=== PATIENT | female | born 1945 | race Caucasian/White ===

== ENCOUNTER 2016-07-28 16:16 | Emergency (ER) | payer MEDICARE, OTHER ==
[2016-07-28] MEDS ORDERED: ALBUTEROL SULFATE/IPRATROPIUM 3 ML NEBU IH ONE ×2 (16:48→17:09)
[2016-07-28] MEDS ORDERED: METHYLPREDNISOLONE SOD SUCC/PF 40 MG/ML VIAL IM ONE (16:49)
--- OUTSIDE RECORDS SUMMARY | 2016-07-28 16:54 | XMS REPORT | Continuity of Care Document ---
:1945 Author Organization [facility] ([facility]) Address [address] [place] [address] Phone [phone] Care Team Providers Name Role Phone Osei Florez Primary Care Provider [phone] Source Comments This disclosure is being made pursuant to the Care Everywhere program, applicable federal and state laws, and may not contain all informaitonavailable regarding this patient.[facility] ([facility]) Active Allergies and Adverse Reactions Allergen Noted Date Severity Reactions Comments No Known Drug Allergies 10/01/2008 NO REACTION Current Medications Prescription Sig. Disp. Refills Start Date End Date Status ferrous sulfate (IRON) 325 mg Take 325 mg by Active (65 mg Iron) tablet mouth daily. VITAMIN B COMPLEX Take by mouth Active NO.12-NIACIN PO daily. SENNOSIDES/DOCUSATE SODIUM Take by mouth. Active (SENNA PLUS PO) acetaminophen (MAPAP) 500 mg Take 500 mg by Active capsule mouth every 6 hours as needed. potassium chloride 10 mEq Active tablet aspirin 325 mg tablet Active budesonide-formoterol Active (SYMBICORT) 160-4.5 mcg/Actuation inhaler citalopram 40 mg tablet Active enalapril 20 mg tablet Active folic acid 1 mg tablet Active gabapentin 800 mg tablet Active hydrochlorothiazide 25 mg Active tablet HYDROcodone-acetaminophen Active 5-325 mg per tablet QUEtiapine 50 mg tablet Active rosuvastatin (CRESTOR) 10 mg Active tablet temazepam 30 mg capsule Active metoPROLol tartrate 50 mg 25 mg. 10/21/2015 Active tablet pantoprazole 40 mg EC tablet 11/19/2015 Active ALBUTEROL SULFATE (VENTOLIN Active INH) clomiPHENE 50 mg tablet Take 50 mg by Active mouth daily. 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 Right Eye Left Eye Time To Recurrence: Time To Recurrence: Date VA (D cc) CMT Status Procedure VA (D cc) CMT Status Procedure Cmts 12/23/201060 +1 Avastin #[id number] 40 -2 02/03/2011 2050 -3 Avastin #884167-6 03/04/201160 +2 Avastin #479106-9 -1 04/01/201160 -1 Lucentis #362599 -1 05/05/2011 Avastin #614260-6 06/09/2011 Avastin #069475-7 07/07/2011 -2 Avastin #343455-0 08/04/2011 421 Avastin #866512-3 09/01/2011 2080 -1 419 Avastin #276075-2 +1 09/29/2011 412 Eylea 12/02/201150 -2 307 Eylea 20 -1 01/27/2012 310 Eylea 03/16/2012 Eylea [id number] -2 06/14/201260 -2 Eylea [id number] -2 08/17/2012 +1 Eylea [id number] -2 10/05/12 ny Eylea [id number] 11/23/2012 Eylea [id number] 12/28/2012 Eylea [id number] 01/25/2013 -2 Eylea [id number] 03/01/2013 2070 ecc sc Lucentis 341051 +2 sc 03/30/13 20 ecc Lucentis 582871 +2 05/02/2013 20 ecc sc Lucentis lot [id number] 20/28-1 sc 08/02/2013 20/175 ecc sc Lucentis 088203 28+1 sc 08/30/2013 20110 ecc sc Lucentis 592794 28-2 sc 09/27/2013110-2ecc sc Lucentis lot [id number] 28+2 sc 10/26/2013 2080 -1 ecc cc Lucentis 898508 20+1 cc 12/06/2013125 sc Lucentis lot [id number] 25 sc 01/09/201480 ecc sc Lucentis lot [id number] 20-1 sc 02/06/2014125 sc Lucentis 731307 30 -2 sc 03/20/2014 20125 ecc sc Lucentis lot 729046 -2 sc 04/17/2014 20/100 ecc cc Lucentis 555245 30+3 cc 06/10/2014 20/100ecc sc Lucentis 339259 30 -2 sc 07/11/2014125 ecc sc Lucentis lot [id number] -2 sc 08/08/2014 20/100 ecc sc Lucentis 163384 -2 sc 09/05/2014125-1 sc Lucentis 458064 and Triesence [id number] 30+2 sc 10/03/2014125-1 eccentric +1 sc Lucentis 611529 40+2 sc 11/07/2014 20/100 ecc sc Lucentis 785696 25-2 sc 12/20/2014100-1 sc Lucentis 054355 20-1 sc 01/24/2015100+1 eccen sc Lucentis 150299 20 sc 04/23/2015 20125-1 ecc sc Lucentis 7155580. Gent OD 20-2 sc 06/25/2015125-1 ecc sc Lucentis 6592737 20-1 sc 09/22/2015 20150-1 ecc sc Lucentis 5291646 -2 sc PLEASE USE TETRAVISC ALONG WITH OTHER NUMBING Dermatochalasis 05/07/2010 Ptosis of eyelid 05/07/2010 Enthesopathy of hip region 04/07/2006 Pain in joint, pelvic region and thigh 02/23/2006 Lumbago 02/23/2006 Diffuse cystic mastopathy 02/17/2006 Lump or mass in breast 08/06/2005 Sprain of lumbar region 10/18/2001 Resolved Problems Problem Noted Date Resolved Date Choroidal neovascularization of right eye 05/11/2011 06/09/2011 Most Recent Encounters Date Type Specialty Providers Description 07/21/2016 Office Visit Ophthalmology Hayder Krishnan Subj: Upcoming Appt Specialty MD Paula Reminder Social History Tobacco Use Types Packs/Day Years Used Date Current Every Day Smoker Cigarettes 0.5 Smokeless Tobacco: Never Used Tobacco Cessation:Ready to Quit: No; Counseling Given: No Comments: Alcohol Use Drinks/Week oz/Week Comments Yes Last Filed Vital Signs Vital Sign Reading Time Taken Blood Pressure 102/63 07/15/2011 10:22 AM DIRECTOR OF INSTITUTIONAL GIVING Pulse 67 07/15/2011 10:22 AM DIRECTOR OF INSTITUTIONAL GIVING Temperature 36.4 C (97.5 F) 07/15/2011 10:22 AM DIRECTOR OF INSTITUTIONAL GIVING Respiratory Rate 16 07/15/2011 10:22 AM DIRECTOR OF INSTITUTIONAL GIVING Height 1.62 m (5' 3.78") 07/14/2010 12:03 PM DIRECTOR OF INSTITUTIONAL GIVING Weight 81.7 kg (180 lb 1.9 oz) 07/15/2011 10:22 AM DIRECTOR OF INSTITUTIONAL GIVING Body Mass Index 31.13 07/15/2011 10:22 AM DIRECTOR OF INSTITUTIONAL GIVING Oxygen Saturation 95% 07/15/2011 10:22 AM DIRECTOR OF INSTITUTIONAL GIVING Plan of Care Date Type Specialty Providers Description 08/04/2016 Appointment Ophthalmology Hayder Krishnan, Subj: Appointment Specialty MD Rescheduled [address] [place] [address] [phone] (Fax) Health Maintenance Due Date Last Done Comments HCV Screening 1945 Hepatitis B Vaccine (1 of 3 1945 - Primary Series) Tdap Vaccine 02/08/1956 Lipid Disorder Screening 1963 Td Vaccine 1963 Colonoscopy 1995 Zoster Vaccine 2005 Osteoporosis Screening (DXA 2010 Bone Density) Pneumococcal Vaccine (1 of 2 2010 - PCV13) Mammogram 07/15/2012 07/15/2011, Additional history exists 07/14/2010, 06/20/2009 Influenza Vaccine: Seasonal 01/05/2016 (#1) Results from Last 3 Months Not on file
--- NOTE | 2016-07-28 17:00 | ERNOTE ---
Medical Problem HPI - Narrative Date of Service: 07/28/16 - General Chief Complaint: General Assessment Time Seen by Provider: 07/28/16 16:35 Source: patient Exam Limitations: no limitations - Immun/Allergies/Home Medications Immunizations: IMMUNIZATION HX Immunizations Up to Date Yes History of Influenza Vaccine Yes Hx Pneumococcal Vaccination No Allergies/Adverse Reactions: Allergies varenicline tartrate [From Chantix] Allergy (Verified 07/28/16 16:25) Home Medications: HOME MEDICATIONS Albuterol Sulfate [Proair Hfa] 8.5 gm IH QID PRN 05/02/12 [Last Taken Unknown] Enalapril Maleate [Vasotec] 20 mg PO DAILY 05/02/12 [Last Taken 01/23/14] Ferrous Sulfate [Iron] 325 mg PO DAILY 05/02/12 [Last Taken 01/23/14] Hydrochlorothiazide [Hydrodiuril] 25 mg PO DAILY 05/02/12 [Last Taken 01/23/14] Citalopram Hydrobromide [Celexa] 40 mg PO DAILY 05/03/12 [Last Taken 01/23/14] Folic Acid 1 mg PO QID 05/03/12 [Last Taken 01/23/14] Gabapentin [Neurontin] 800 mg PO TID 05/03/12 [Last Taken 01/23/14] Metoprolol Tartrate 25 mg PO DAILY 05/03/12 [Last Taken 01/23/14] Potassium Chloride 10 meq PO DAILY 05/03/12 [Last Taken 01/23/14] Aspirin [Ecotrin] 325 mg PO DAILY 10/12/12 [Last Taken 01/23/14] Temazepam [Restoril] 15 mg PO HS 11/25/13 [Last Taken 01/22/14] Rosuvastatin Calcium [Crestor] 10 mg PO DAILY 01/23/14 [Last Taken 01/23/14] Budesonide [Pulmicort] 1 mg IH DAILY 12/29/14 [Last Taken Unknown] Seroquel PO DAILY 12/29/14 [Last Taken Unknown] Albuterol Sulfate [Ventolin HFA] 1 puff IH 07/28/16 [Last Taken Unknown] Albuterol Sulfate [Ventolin Hfa] 2 puff IH Q4H PRN #1 inhaler 07/28/16 [Last Taken Unknown] Albuterol Sulfate/Ipratropium [Duoneb 2.5-0.5MG/3ML Soln] 3 ml IH BID #100 vial 07/28/16 [Last Taken Unknown] Doxycycline Monohydrate 100 mg PO BID #20 tablet 07/28/16 [Last Taken Unknown] predniSONE [Prednisone] 3 tab PO DAILY #9 tab 07/28/16 [Last Taken Unknown] - History of Present History Narrative: Pt presents to ED with c/o increased shortness of breath. Pt states she has not been able to use her Symbicort due to unable to afford it and Ventolin inhaler because it is coming in the mail. Pt is using her Nebulizer treatment at home twice a day. Pt states she has intermittent wet productive cough, nasal drainage , nasal congestion. Pt denies sore throat, ear pain, teeth pain, or chest pain. Pt states she sleeps with 2 pillows or in a recliner. Pt states the shortness of breath or cough do not wake her up in the middle of the night. Pt denies lightheadedness or dizziness. Pt states she is able to make it from point [place] to [place] without problems as long as it is short distances. Pt states she does have a history of COPD. Pt sates this feels like when she has her exacerbations. Date (Duration): 07/18/16 Timing: getting worse Severity: moderate Modifying Factors - (Worsens): Present: movement Review of Systems - Review of Systems Constitutional: Present: recent illness, weakness, decreased activity level. Absent: weight loss EYE: Present: no symptoms reported. Absent: eye pain, double vision, vision changes ENT: Present: nose congestion, nasal drainage. Absent: ear pain, ear discharge , nose pain, sore throat, throat swelling Respiratory: Present: shortness of breath, cough - productive, wheezing Cardiology: Present: no symptoms reported. Absent: chest pain, palpitations, syncope Gastrointestinal/Abdominal: Present: constipation, eating less. Absent: nausea , vomiting, diarrhea, drinking less Genitourinary: Present: no symptoms reported. Absent: frequency, pain Musculoskeletal: Present: no symptoms reported. Absent: back pain, muscle pain , muscle stiffness Skin: Present: no symptoms reported. Absent: rash, dryness, change in color Neurological: Present: headache - headache every morning, weakness. Absent: anxiety, depressed, dizziness/light-headedness, numbness, tingling Endocrine: Present: no symptoms reported. Absent: excessive sweating, flushing , intolerance to heat, intolerance to cold Hematologic/Lymphatic: Present: no symptoms reported. Absent: easy bruising, easy bleeding Psych: Present: no symptoms reported. Absent: anxiety, depressed All Other Systems: All systems neg except as marked - Patient's Past Medical History Patient History - Medical: Anxiety, Depression, Osteoarthritis Patient History - Cardiac/Respiratory: Asthma, COPD Patient History - Cancer: Cervical Patient History - Surgical Procedures: Hysterectomy, Total Hip Replacement, Other, Other Patient History - Other: None - Family History Mother Family History - Medical: Family History - Cardiac/Respiratory: CVA/Stroke, Hypertension Father Family History - Medical: - Social History Living Situations: home Abuse History: No History of abuse Psych History: Hx of Anxiety, Hx of Depression, Current tx/ever been on anti- depressants or anti-anxiety meds Smoking Status: Current every day smoker Have you smoked in the past 12 months: Yes Alcohol Use: rarely Drug Use: none - Immunizations Immunizations Up to Date: Yes Hx Pneumococcal Vaccination: No History of Influenza Vaccine: Yes Physical Exam - Physical Exam General Appearance: Present: wd/wn, alert, moderate distress. Absent: anxious, lethargic, obese Eye Exam: Normal inspection: bilateral, PERRL: bilateral, EOMI: bilateral Ears, Nose, Throat: Present: hearing grossly normal, nasal congestion, normal pharynx. Absent: abnormal TM (R), abnormal TM (L), cerumen impaction, sinus pain/drainage, pharyngeal erythema, pharyngeal swelling, tonsillar exudate Neck: Present: normal inspection, nontender, supple, full range of motion. Absent: limited range of motion Respiratory: Present: no accessory muscle use, chest nontender, respiratory distress, decreased breath sounds, rhonchi, wheezing. Absent: accessory muscle use, pleural rub Cardiovascular/Chest: Present: regular rate, rhythm, no murmur, normal peripheral pulses. Absent: irregularly irregular Gastrointestinal/Abdominal: Present: normal bowel sounds, nontender, nondistended, soft, no organomegaly. Absent: tenderness, guarding, rebound Back Exam: Present: normal inspection, normal range of motion, no CVA tenderness , no vertebral tenderness Extremity Exam: Present: normal inspection, non-tender, no edema, normal range of motion. Absent: calf tenderness, joint redness, joint swelling, extremity edema Neurological Exam: Present: alert, oriented, normal mood/affect, no motor/ sensory deficits, hearing impaired teacher II-XII nml as tested, normal cerebellar test. Absent: motor weakness Skin Exam: Present: normal color, warm/dry. Absent: skin rash Lymphatic Exam: Present: no adenopathy ED Progress - Vital Signs Patient's Vital Signs:: I have reviewed the patient's vital signs. Vital Signs: Vital Signs 07/28/16 16:21 Temperature 35.9 C L Pulse Rate 67 Respiratory 16 Rate Blood Pressure 130/86 O2 Sat by Pulse 97 Oximetry - EKG EKG: other - sinus rhythm previous septal damage no acute changes EKG read: Interp. by me - CT/Ultrasound CT/Ultrasound Narrative: CT negative for PE but with 11mm nodule and dependent atelactasis, bronchiectasis and scarring noted bilaterally. - Progress/Reassessment Chief Complaint: General Assessment Progress:: Improved Departure - Departure Clinical Impression: Acute exacerbation of chronic bronchitis Allergic rhinitis Qualifiers: Allergic rhinitis trigger: unspecified Allergic rhinitis seasonality: unspecified seasonality Qualified Code(s): J30.9 - Allergic rhinitis, unspecified Disposition: Home self-care Condition: Good Instructions: Allergies, [id number], Chronic Bronchitis, Acute Bronchitis Additional Instructions: Please follow up with primary doctor in 2-3 days to recheck potassium. Please take claritin over the counter daily. Please continue Duo neb twice a day and albuterol inhaler every four hours as needed. Referrals: Osei Florez DO [Primary Care Provider] - Prescriptions: Albuterol Sulfate [Ventolin Hfa] 2 puff IH Q4H PRN #1 inhaler PRN Reason: Shortness Of Breath Albuterol Sulfate/Ipratropium [Duoneb 2.5-0.5MG/3ML Soln] 3 ml IH BID #100 vial Doxycycline Monohydrate 100 mg PO BID #20 tablet predniSONE [Prednisone] 3 tab PO DAILY #9 tab
[2016-07-28 17:09] LABS: Hematocrit 44.4 % (37.0-47.0); Hemoglobin 14.8 gm/dL (12.5-16.0); Mean Cell Volume 95.5 fl (78-100); Mean Corpuscular Hemoglobin 31.8 pg (27-31); Mean Corpuscular Hgb Conc 33.3 g/dl (32-36); Mean Platelet Volume 10.1 fl (6.0-9.5); Neutrophil # 2.5 K/mm3 (1.3-6.0); Platelet Count 303 K/mm3 (150-450); Red Blood Count 4.65 M/mm3 (4.2-5.4); Red Cell Distribution Width 13.8 % (11.5-14.0); White Blood Count 5.9 K/mm3 (4.0-10.5)
[2016-07-28] MEDS ORDERED: METHYLPREDNISOLONE SOD SUCC/PF 40 MG/ML VIAL ONE (17:09)
[2016-07-28 17:28] LABS: ALT 26 U/L (19-67); AST 27 U/L (0-48); Albumin * 3.1 gm/dl (3.4-5.0); Alkaline Phosphatase * 101 U/L (50-170); Anion Gap 8.4 mmol/L (6.8-13.8); BNP * 120 pg/mL (5-325); BUN/Creatinine Ratio 19.7 (9.0-21.6); Bilirubin, Total 0.5 mg/dL (0.0-1.1); Blood Urea Nitrogen 13 mg/dL (3-23); Ca. Corrected For Albumin 10.1 mg/dL (8.4-10.2); Calcium * 9.7 mg/dL (7.9-10.9); Carbon Dioxide 30.8 mmol/L (24-32.6); Chloride 100 mmol/L (97-106); Glucose * 95 mg/dL (70-110); Potassium 3.2 mmol/L (3.4-4.6); Sodium 136 mmol/L (132-142); Total Protein 7.6 gm/dL (6.2-8.2); Troponin I Less than 0.017 ng/ml (0.00-0.10)
[2016-07-28] MEDS ORDERED: POTASSIUM CHLORIDE 20 MEQ TABLET.SA PO ONE (20:16)
[2016-07-28] MEDS ORDERED: POTASSIUM CHLORIDE 20 MEQ TABLET.SA ONE (20:20)
[2016-07-28] MEDS ORDERED: DOXYCYCLINE HYCLATE 100 MG TABLET PO ONE (20:56)
[2016-07-28] MEDS ORDERED: ALBUTEROL SULFATE 200 PUFF INHALER IH SCH (21:00)
[2016-07-28] MEDS ORDERED: DOXYCYCLINE HYCLATE 100 MG TABLET ONE (21:26)
[2016-07-28] MEDS ORDERED: ALBUTEROL SULFATE 60 PUFF INHALER IH ONE (21:26)
[2016-07-28 21:49] VITALS: BP 128/86
== END 2016-07-28 21:48 | disposition home or self-care (01) ==
LOC: ER 16:16
DX: J42 Unspecified chronic bronchitis (principal); Z72.0 Tobacco use; Z85.41 Personal history of malignant neoplasm of cervix uteri; F32.9 Major depressive disorder, single episode, unspecified

== ENCOUNTER 2017-02-20 11:20 | Emergency (ER) | payer MEDICARE, OTHER ==
[2017-02-20 11:35] VITALS: BP 141/102
--- NOTE | 2017-02-20 12:36 | ERNOTE ---
Lower Extremity HPI - Narrative Date of Service: 02/20/17 - General Lower Extremities Pain: leg: left Time Seen by Provider: 02/20/17 12:20 Source: patient - Immun/Allergies/Home Medications Immunizations: IMMUNIZATION HX Immunizations Up to Date Yes History of Influenza Vaccine Yes Hx Pneumococcal Vaccination Yes Allergies/Adverse Reactions: Allergies Allergy/AdvReac Type Severity Reaction Status Date / Time varenicline tartrate Allergy Verified 02/20/17 11:34 [From Chantix] Home Medications: HOME MEDICATIONS Albuterol Sulfate [Proair Hfa] 8.5 gm IH QID PRN 05/02/12 [Last Taken Unknown] Enalapril Maleate [Vasotec] 20 mg PO DAILY 05/02/12 [Last Taken 01/23/14] Ferrous Sulfate [Iron] 325 mg PO DAILY 05/02/12 [Last Taken 01/23/14] Hydrochlorothiazide [Hydrodiuril] 25 mg PO DAILY 05/02/12 [Last Taken 01/23/14] Citalopram Hydrobromide [Celexa] 40 mg PO DAILY 05/03/12 [Last Taken 01/23/14] Folic Acid 1 mg PO QID 05/03/12 [Last Taken 01/23/14] Gabapentin [Neurontin] 800 mg PO TID 05/03/12 [Last Taken 01/23/14] Metoprolol Tartrate 25 mg PO DAILY 05/03/12 [Last Taken 01/23/14] Potassium Chloride 10 meq PO DAILY 05/03/12 [Last Taken 01/23/14] Aspirin [Ecotrin] 325 mg PO DAILY 10/12/12 [Last Taken 01/23/14] Temazepam [Restoril] 15 mg PO HS 11/25/13 [Last Taken 01/22/14] Rosuvastatin Calcium [Crestor] 10 mg PO DAILY 01/23/14 [Last Taken 01/23/14] Budesonide [Pulmicort] 1 mg IH DAILY 12/29/14 [Last Taken Unknown] Seroquel PO DAILY 12/29/14 [Last Taken Unknown] Albuterol Sulfate [Ventolin HFA] 1 puff IH 07/28/16 [Last Taken Unknown] Albuterol Sulfate [Ventolin Hfa] 2 puff IH Q4H PRN #1 inhaler 07/28/16 [Last Taken Unknown] Albuterol Sulfate/Ipratropium [Duoneb 2.5-0.5MG/3ML Soln] 3 ml IH BID #100 vial 07/28/16 [Last Taken Unknown] Albuterol Sulfate [Ventolin HFA] 1 puff INH PRN PRN 02/20/17 [Last Taken Unknown ] HYDROcodone/ACETAMINOPHEN [Hydrocodon-Acetaminophen 5-325] 1 each PO TID PRN #3 tablet 02/20/17 [Last Taken Unknown] - History of Present Illness Narrative: patient states she is out of her pain medication. patient states that she dosnt know how she was out because she was taking them as prescribed. DIRECTOR OF DEMENTIA OPERATIONS look up showed patient was prescribed 120 tabs of hydrocodone on 01/28/17. When i informed patient that I was aware of this prescription she stated she has been taking more f her pain medication than she was supposed to because of pain. Date (Duration): 02/20/17 Occurred: just prior to arrival Location of Incident: home Method of Injury: Reports: other - previous leg surgeries Modifying Factors - (Improves): Reports: pain medication Modifying Factors - (Worsens): Reports: movement Associated Symptoms: Denies: unable to bear weight, snapping, popping sensation , weakness, sensory loss, chest pain, bowel/bladder problems Other Injuries: Reports: none Prior Treament: Reports: similar symptoms before Review of Systems - Review of Systems Constitutional: Present: no symptoms reported EYE: Present: no symptoms reported ENT: Present: no symptoms reported Respiratory: Present: no symptoms reported Cardiology: Present: no symptoms reported Gastrointestinal/Abdominal: Present: no symptoms reported Genitourinary: Present: no symptoms reported Musculoskeletal: Present: See HPI, muscle pain Skin: Present: no symptoms reported Neurological: Present: no symptoms reported Endocrine: Present: no symptoms reported Hematologic/Lymphatic: Present: no symptoms reported Psych: Present: no symptoms reported All Other Systems: All systems neg except as marked - Patient's Past Medical History Patient History - Medical: Anxiety, Chronic Pain, Depression, Osteoarthritis Patient History - Cardiac/Respiratory: Asthma, COPD, Hypertension, Hyperlipidemia Patient History - Cancer: Cervical Patient History - Surgical Procedures: Hysterectomy, Total Hip Replacement, Other, Other Patient History - Other: None - Family History Mother Family History - Medical: Family History - Cardiac/Respiratory: CVA/Stroke, Hypertension Father Family History - Medical: - Social History Living Situations: alone Abuse History: No History of abuse Psych History: Hx of Anxiety, Hx of Depression, Current tx/ever been on anti- depressants or anti-anxiety meds Smoking Status: Current every day smoker Have you smoked in the past 12 months: Yes Do you dip or chew tobacco: No Alcohol Use: rarely Drug Use: none - Immunizations Immunizations Up to Date: Yes Hx Pneumococcal Vaccination: Yes History of Influenza Vaccine: Yes Physical Exam - Physical Exam Narrative: patient able to ambulate with walker unassisted. no change in gait. General Appearance: Present: wd/wn, alert, no apparent distress Head Exam: Present: normal inspection, no evidence of injury Eye Exam: Normal inspection: bilateral Ears, Nose, Throat: Present: normal ENT inspection, normal pharynx Neck: Present: normal inspection, nontender Respiratory: Present: no respiratory distress, normal breath sounds, no accessory muscle use, chest nontender, lungs clear Cardiovascular/Chest: Present: regular rate, rhythm, no murmur, normal peripheral pulses Peripheral Pulses: N=norm/S=strong/W=weak/B=bound/A=absent: Dorsalis-pedis (R): Normal, Dorsalis-pedis (L): Normal Gastrointestinal/Abdominal: Present: normal bowel sounds, nontender, nondistended, soft, no organomegaly Back Exam: Present: normal inspection, normal range of motion, no CVA tenderness , no vertebral tenderness Extremity Exam: Present: normal inspection, non-tender, no edema, decreased range of motion - patient states that this is normal for her, pelvis stable. Absent: pedal edema, calf tenderness, bony tenderness, joint redness, joint swelling, extremity edema Neurological Exam: Present: alert, oriented, normal mood/affect, no motor/ sensory deficits Skin Exam: Present: normal color, warm/dry Lymphatic Exam: Present: no adenopathy ED Progress - Vital Signs Vital Signs: Vital Signs 02/20/17 02/20/17 11:26 11:39 Temperature 37.2 C 37.2 C Pulse Rate 94 94 Respiratory 16 16 Rate Blood Pressure 141/102 141/102 - Progress/Reassessment Chief Complaint: Lower Extremity Pain/ Injury Progress:: Unchanged Plan - Plan Plan: patient prescribed 3 doses of her normal pain medication regimen. patient educated about taking medication as prescribed and that she needs to contact her prescriber if she is having an increase in her pain or starts to run low. patient states she has a follow up apt with her PCP on Tuesday, Departure Clinical Impression: Chronic pain due to injury - Departure Disposition: Home Follow Up Needed Condition: Stable Instructions: Medicine Refill at the Emergency Department Additional Instructions: continue any previous home medication as DIRECTED. Follow up with you Doctor for medication refills. Referrals: Osei Florez DO [Primary Care Provider] - Prescriptions: HYDROcodone/ACETAMINOPHEN [Hydrocodon-Acetaminophen 5-325] 1 each PO TID PRN #3 tablet PRN Reason: Pain
== END 2017-02-20 12:44 | disposition home or self-care (01) ==
LOC: ER 11:20
DX: G89.21 Chronic pain due to trauma (principal); Z85.41 Personal history of malignant neoplasm of cervix uteri; F17.200 Nicotine dependence, unspecified, uncomplicated

== ENCOUNTER 2017-08-14 23:42 | Inpatient (IN) | payer MEDICARE, OTHER ==
--- NOTE | 2017-08-15 00:03 | ERNOTE ---
Medical Problem HPI - General Chief Complaint: Nausea/Vomiting Time Seen by Provider: 08/14/17 23:42 Source: patient, EMS, RN notes reviewed, old records Exam Limitations: no limitations - Immun/Allergies/Home Medications Immunizations: IMMUNIZATION HX Immunizations Up to Date Yes History of Influenza Vaccine Yes Hx Pneumococcal Vaccination Yes Allergies/Adverse Reactions: Allergies varenicline tartrate [From Chantix] Allergy (Verified 02/20/17 11:34) Home Medications: HOME MEDICATIONS Enalapril Maleate [Vasotec] 20 mg PO DAILY 05/02/12 [Last Taken 01/23/14] Hydrochlorothiazide [Hydrodiuril] 25 mg PO DAILY 05/02/12 [Last Taken 01/23/14] Citalopram Hydrobromide [Celexa] 40 mg PO DAILY 05/03/12 [Last Taken 01/23/14] Metoprolol Tartrate 25 mg PO DAILY 05/03/12 [Last Taken 01/23/14] Potassium Chloride 20 meq PO DAILY 05/03/12 [Last Taken 01/23/14] Aspirin [Ecotrin] 325 mg PO DAILY 10/12/12 [Last Taken 01/23/14] Temazepam [Restoril] 30 mg PO HS 11/25/13 [Last Taken 01/22/14] Rosuvastatin Calcium [Crestor] 10 mg PO HS 01/23/14 [Last Taken 01/23/14] Albuterol Sulfate [Ventolin Hfa] 2 puff IH Q4H PRN #1 inhaler 07/28/16 [Last Taken Unknown] HYDROcodone/ACETAMINOPHEN [Hydrocodon-Acetaminophen 5-325] 1 tab PO QID PRN 05/23 [Last Taken 08/14/17 12:00] QUEtiapine FUMARATE [Seroquel] 50 mg PO HS 08/15/17 [Last Taken 08/14/17] - History of Present History Narrative: Patient presents by EMS with the complaint that she thinks she got into some bad food, noting that she ate a frozen pizza tonight, and after that she had multiple episodes of nausea, vomiting and unrelenting diarrhea. She ended up calling an ambulance for transportation here to the ED. Upon arrival, she was sitting on a bed alvarez full of stool, had been given Zofran IV, and was no longer vomiting. Timing: getting worse, intermittent Severity: severe Modifying Factors - (Improves): Present: rest Modifying Factors - (Worsens): Present: eating, movement Review of Systems - Review of Systems Constitutional: Present: recent illness, weakness, fatigue, malaise. Absent: fever, chills EYE: Present: no symptoms reported ENT: Absent: ear pain, sore throat Respiratory: Absent: shortness of breath, cough Cardiology: Absent: chest pain, palpitations Gastrointestinal/Abdominal: Present: nausea, vomiting, diarrhea, abdominal pain Genitourinary: Present: no symptoms reported Musculoskeletal: Present: no symptoms reported Skin: Present: no symptoms reported Neurological: Present: anxiety, depressed, dizziness/light-headedness. Absent: headache Hematologic/Lymphatic: Present: no symptoms reported Psych: Present: no symptoms reported - Patient's Past Medical History Patient History - Medical: Anxiety, Chronic Pain, Depression, Osteoarthritis Patient History - Cardiac/Respiratory: Asthma, COPD, Hypertension, Hyperlipidemia Patient History - Cancer: Cervical Patient History - Surgical Procedures: Hysterectomy, Total Hip Replacement, Other, Other, Orthopedic Patient History - Other: None - Family History Mother Family History - Medical: Family History - Cardiac/Respiratory: CVA/Stroke, Hypertension Father Family History - Medical: - Social History Living Situations: home Abuse History: No History of abuse Psych History: Hx of Anxiety, Hx of Depression, Current tx/ever been on anti- depressants or anti-anxiety meds Smoking Status: Current every day smoker Alcohol Use: occasionally Drug Use: none - Immunizations Immunizations Up to Date: Yes Hx Pneumococcal Vaccination: Yes History of Influenza Vaccine: Yes Physical Exam - Physical Exam General Appearance: Present: wd/wn, alert, mild distress, thin Head Exam: Present: normal inspection, no evidence of injury Eye Exam: Normal inspection: bilateral, PERRL: bilateral, EOMI: bilateral Ears, Nose, Throat: Present: dry mucous membranes Neck: Present: normal inspection, nontender Respiratory: Present: no respiratory distress, normal breath sounds, no accessory muscle use, chest nontender, lungs clear Cardiovascular/Chest: Present: regular rate, rhythm, no murmur, normal peripheral pulses Gastrointestinal/Abdominal: Present: nontender, nondistended, soft, abnormal bowel sounds - hyperactive Back Exam: Present: normal inspection, normal range of motion Extremity Exam: Present: normal inspection, non-tender, normal range of motion Neurological Exam: Present: alert, oriented, normal mood/affect, no motor/ sensory deficits Skin Exam: Present: normal color, cool/dry ED Progress - Results and Orders Patient's Lab Results:: I have reviewed the patient's lab results. Results and Orders: Laboratory Last Values WBC 19.4 K/mm3 (4.0-10.5) H 08/15/17 01:00 RBC 4.19 M/mm3 (4.2-5.4) L 08/15/17 01:00 Hgb 13.2 gm/dL (12.5-16.0) 08/15/17 01:00 Hct 40.7 % (37.0-47.0) 08/15/17 01:00 MCV 97.1 fl (78-100) 08/15/17 01:00 MCH 31.5 pg (27-31) H 08/15/17 01:00 MCHC 32.4 g/dl (32-36) 08/15/17 01:00 RDW 13.2 % (11.5-14.0) 08/15/17 01:00 Plt Count 299 K/mm3 (150-450) 08/15/17 01:00 MPV 9.6 fl (6.0-9.5) H 08/15/17 01:00 Immature Gran % (Auto) 0.80 % (0.001-0.429) H 08/15/17 01:00 Immature Gran # (Auto) 0.15 K/mm3 (0.000-0.0310) H 08/15/17 01:00 Neutrophils % 75.0 % (42-75.0) 08/15/17 01:00 Lymphocytes % 15.1 % (20-51) L 08/15/17 01:00 Monocytes % 6.4 % (0.0-9) 08/15/17 01:00 Eosinophils % 2.1 % (0.0-3.0) 08/15/17 01:00 Basophils % 0.6 % (0.0-1.0) 08/15/17 01:00 Nucleated RBC % 0.0 k/mm3 (0-1) 08/15/17 01:00 Neutrophils # 14.5 K/mm3 (1.3-6.0) H 08/15/17 01:00 Lymphocytes # 2.93 k/mm3 (1.5-3.5) 08/15/17 01:00 Monocytes # 1.3 k/mm3 (0.0-1.0) H 08/15/17 01:00 Eosinophils # 0.4 k/mm3 (0.0-0.7) 08/15/17 01:00 Absolute Basophils 0.1 k/mm3 (0.0-0.1) 08/15/17 01:00 Sodium 131 mmol/L (132-142) L 08/15/17 01:00 Plasma Sodium 131 mmol/L (130-142) 08/15/17 01:00 Potassium 3.6 mmol/L (3.4-4.6) 08/15/17 01:00 Chloride 99 mmol/L (97-106) 08/15/17 01:00 Carbon Dioxide 20.4 mmol/L (24-32.6) L 08/15/17 01:00 Anion Gap 15.2 mmol/L (6.8-13.8) H 08/15/17 01:00 BUN 14 mg/dL (3-23) 08/15/17 01:00 Creatinine 0.94 mg/dL (0.4-1.4) 08/15/17 01:00 Est GFR (Non-Af Amer) 62 mL/min (60-130) D 08/15/17 01:00 BUN/Creatinine Ratio 14.9 (9.0-21.6) 08/15/17 01:00 Random Glucose 117 mg/dL (70-110) H 08/15/17 01:00 Lactic Acid, Venous 3.1 mmol/L (0.4-1.9) H* 08/15/17 03:20 Calcium 9.2 mg/dL (7.9-10.9) 08/15/17 01:00 Calcium Adj for Albumin 10.3 mg/dL (8.4-10.2) H 08/15/17 01:00 Total Bilirubin 0.7 mg/dL (0.0-1.1) 08/15/17 01:00 AST 19 U/L (0-48) 08/15/17 01:00 ALT 13 U/L (19-67) L 08/15/17 01:00 Alkaline Phosphatase 93 U/L (50-170) 08/15/17 01:00 Troponin I Less than 0.017 ng/ml (0.00-0.10) 08/15/17 01:00 Total Protein 7.1 gm/dL (6.2-8.2) 08/15/17 01:00 Albumin 2.2 gm/dl (3.4-5.0) L 08/15/17 01:00 Urine Color Yellow 08/15/17 03:00 Urine Appearance Slightly cloudy (CLEAR) 08/15/17 03:00 Urine pH 7.0 pH (5.0-7.0) 08/15/17 03:00 Ur Specific [place] 1.015 SP.GR. (1.005-1.010) 08/15/17 03:00 Urine Protein 15 mg/dL (NEGATIVE) H 08/15/17 03:00 Urine Glucose (UA) Negative mg/dL (NEGATIVE) 08/15/17 03:00 Urine Ketones Negative mg/dL (NEGATIVE) 08/15/17 03:00 Urine Blood 25 /ul (NEGATIVE) H 08/15/17 03:00 Urine Nitrate Negative (NEGATIVE) 08/15/17 03:00 Urine Bilirubin Negative mg/dl (NEGATIVE) 08/15/17 03:00 Prot Sulfosalicylic Acd QNS 08/15/17 03:00 Urine Urobilinogen Normal EU/dl (NORMAL) 08/15/17 03:00 Ur Leukocyte Esterase 25 /ul (NEGATIVE) H 08/15/17 03:00 Urine RBC Trace /hpf (0-5) 08/15/17 03:00 Urine WBC None seen /hpf (0-5) 08/15/17 03:00 Ur Epithelial Cells 0-5 /hpf (0-5) 08/15/17 03:00 Urine Bacteria 1+ (NONE) H 08/15/17 03:00 Urine Culture Comments Culture to follow 08/15/17 03:00 Stool Occult Blood Negative 08/15/17 01:30 Urine Opiates Screen Positive (NEGATIVE) H 08/15/17 03:30 Barbiturate Screen Negative (NEGATIVE) 08/15/17 03:30 Ur Phencyclidine Scrn Negative (NEGATIVE) 08/15/17 03:30 Urine Amphetamine Negative (NEGATIVE) 08/15/17 03:30 U Benzodiazepines Scrn Negative (NEGATIVE) 08/15/17 03:30 Urine Cocaine Screen Negative (NEGATIVE) 08/15/17 03:30 Urine Marijuana (THC) Negative (NEGATIVE) 08/15/17 03:30 Influenza Type A Ag Negative (NEGATIVE) 08/15/17 01:00 Influenza Type B Ag Negative (NEGATIVE) 08/15/17 01:00 - Vital Signs Patient's Vital Signs:: I have reviewed the patient's vital signs. Vital Signs: Vital Signs 08/14/17 23:50 Temperature 35.8 C L Pulse Rate 78 Respiratory 14 Rate Blood Pressure 74/49 O2 Sat by Pulse 98 Oximetry - EKG EKG: NSR - with a sinus arrhythmia EKG read: Interp. by me EKG Comments: Done on 08/14/2017 at 23:51 PM. Rate is [address] deviation and moderate T wave abnormality. - X-Ray X-Ray #1 X-Ray: chest Interpretation: Interp. by me X-ray Comments: CXR with an elongated chest with COPD changes. No cardiomegaly noted. No infiltrates noted. Bilateral kurt-diaphragms flattened. Bilateral shoulder replacements noted. X-Ray #2 X-Ray: abdomen Interpretation: Interp. by me X-ray Comments: Flat and lateral decub views done. No free air noted. Multiple air/fluid levels noted. Left total hip replacement. - Progress/Reassessment Chief Complaint: Nausea/Vomiting Progress Note-Subjective: 08/15/17 04:56 Patient with a positive lactic acid X 2. Was admitted to the floor after getting her blood pressure to come up. Initially patient had a systolic blood pressure in the 90's, which ended up dropping to the 50's. Patient given 2 liters of NS wide open, blood pressure recuperated to the 90's systolic. Was briefly in the low 100's, but then dropped back down into the 90's so added another bag of NS at 300 mls/hour. Patient continued to have a few more episodes of diarrhea, but otherwise seemed comfortable. Her labs and presentation meant that she needed to be admitted, but with the recuperation of her blood pressure, that remained stable with the third liter, she was admitted to the floor. I did speak to Dr. Crespo around midnight about this patient in addition to the other patient admitted tonight, he agreed to the admit, requesting the fluid bolus we already had going. Patient did well while here in the ED, in spite of her low blood pressures, was actually quite surprised to find out that she was being admitted, she was sure she would go home. Departure Clinical Impression: Sepsis associated hypotension, Gastroenteritis, Dehydration, severe Sepsis Qualifiers: Sepsis type: sepsis due to unspecified organism Qualified Code(s): A41.9 - Sepsis, unspecified organism - Departure Disposition: Short Term Hospital Inpatient Condition: Fair
[2017-08-15 01:02] LABS: Hematocrit 40.7 % (37.0-47.0); Hemoglobin 13.2 gm/dL (12.5-16.0); Mean Cell Volume 97.1 fl (78-100); Mean Corpuscular Hemoglobin 31.5 pg (27-31); Mean Corpuscular Hgb Conc 32.4 g/dl (32-36); Mean Platelet Volume 9.6 fl (6.0-9.5); Neutrophil # 14.5 K/mm3 (1.3-6.0); Platelet Count 299 K/mm3 (150-450); Red Blood Count 4.19 M/mm3 (4.2-5.4); Red Cell Distribution Width 13.2 % (11.5-14.0); White Blood Count 19.4 K/mm3 (4.0-10.5)
[2017-08-15 01:20] LABS: ALT 13 U/L (19-67); AST 19 U/L (0-48); Albumin * 2.2 gm/dl (3.4-5.0); Alkaline Phosphatase * 93 U/L (50-170); Anion Gap 15.2 mmol/L (6.8-13.8); BUN/Creatinine Ratio 14.9 (9.0-21.6); Bilirubin, Total 0.7 mg/dL (0.0-1.1); Blood Urea Nitrogen 14 mg/dL (3-23); Ca. Corrected For Albumin 10.3 mg/dL (8.4-10.2); Calcium * 9.2 mg/dL (7.9-10.9); Carbon Dioxide 20.4 mmol/L (24-32.6); Chloride 99 mmol/L (97-106); Glucose * 117 mg/dL (70-110); Potassium 3.6 mmol/L (3.4-4.6); Sodium 131 mmol/L (132-142); Total Protein 7.1 gm/dL (6.2-8.2); Troponin I Less than 0.017 ng/ml (0.00-0.10)
[2017-08-15] MEDS ORDERED: PROCHLORPERAZINE EDISYLATE 5 MG/ML VIAL IV PRN ×2 (02:25→10:45)
[2017-08-15] MEDS ORDERED: NORMAL SALINE 1,000 ML IV PRN (02:45)
[2017-08-15] MEDS ORDERED: NORMAL SALINE 1,000 ML IV ONE ×2 (02:45→02:47)
[2017-08-15] MEDS: NORMAL SALINE 1,000 ML IV ONE ×2 (03:18→05:59)
[2017-08-15] MEDS ORDERED: PROCHLORPERAZINE EDISYLATE 5 MG/ML VIAL ONE (03:19)
[2017-08-15 03:22] LABS: Urine Bilirubin Negative (NEGATIVE); Urine Blood 25 /ul (NEGATIVE); Urine Ketone Negative (NEGATIVE); Urine Nitrite Negative (NEGATIVE); Urine Protein 15 mg/dL (NEGATIVE); Urine Specific Gravity 1.015 SP.GR. (1.005-1.010); Urine Urobilinogen Normal (NORMAL)
[2017-08-15 03:23] LABS: Urine Appearance Slightly Cloudy (CLEAR); Urine Bacteria 1+; Urine Color Yellow; Urine RBC TRACE /hpf (0-5); Urine WBC None Seen /hpf (0-5)
[2017-08-15 03:38] LABS: Cocaine Ur Negative (NEGATIVE); Urine Barbiturate Negative (NEGATIVE); Urine Benzodiazepines Negative (NEGATIVE); Urine PCP Negative (NEGATIVE); Urine THC Negative (NEGATIVE)
[2017-08-15 03:46] LABS: Urine Opiates Positive (NEGATIVE)
[2017-08-15] MEDS ORDERED: NORMAL SALINE 500 ML IV ONE (07:21)
--- NOTE | 2017-08-15 07:53 | HP ---
Chief Complaint - Chief Complaint Date of Service: 08/15/17 Time of Service: 07:37 Chief Complaint: nausea/vomiting/diarrhea History of Present Illness: Jackie Tolbert, is a 72-year-old white female, with previous medical history of COPD, DVT, hypertension, anxiety and depression, who was admitted on 08/15/2017 because of nausea, vomiting and diarrhea. The patient was in her usual self until last night when her granddaughter heated up her frozen pizza. She ate 2 slices around 9 in the evening. She went to her bed around 10 in the evening and she started getting nauseous. Later on, she started having nausea, vomiting and profuse diarrhea. She felt warm and started sweating and so she was brought to the emergency room. In the emergency room she was still bathed in her liquid stool. She was found to be hypotensive and IV fluid boluses were given to bring up her blood pressure. She was then admitted for further treatment. Her granddaughter did not eat the pizza . She denied any fever or chills, denied blood in the stools. She does not know the expiration date of the pizza. - Patient's Past Medical History Patient History - Medical: Anxiety, Chronic Pain, Depression, Osteoarthritis Patient History - Cardiac/Respiratory: Asthma, COPD, Hypertension, Hyperlipidemia Patient History - Cancer: Cervical Patient History - Surgical Procedures: Hysterectomy, Total Hip Replacement, Other, Other, Orthopedic Patient History - Other: None - Family History Mother Family History - Medical: Family History - Cardiac/Respiratory: CVA/Stroke, Hypertension Father Family History - Medical: - Social History Living Situations: home Abuse History: No History of abuse Psych History: Hx of Anxiety, Hx of Depression, Current tx/ever been on anti- depressants or anti-anxiety meds Smoking Status: Current every day smoker Have you smoked in the past 12 months: Yes Patient requests Smoking Cessation Consult: No Initiate information on Smoking Cessation: No Alcohol Use: occasionally Drug Use: none - Immunizations Immunizations Up to Date: Yes Hx Pneumococcal Vaccination: Yes History of Influenza Vaccine: Yes Review Of Systems (GEN) - Review of Systems Generalized/Overall Review: Present: Weakness. Absent: Chills, Fever Respiratory: Present: Wheezing. Absent: Cough, Shortness of Breath Cardiac: Absent: Chest Pain, Edema, Palpitations Abdominal: Present: Nausea, Vomiting, Abdominal Pain, Diarrhea. Absent: Melena , Bright blood from rectum Genitourinary: Absent: Urgency, Frequency Musculoskeletal: Present: Joint Pain Immunizations: IMMUNIZATION HX Immunizations Up to Date Yes History of Influenza Vaccine Yes Hx Pneumococcal Vaccination Yes Allergies/Adverse Reactions: Allergies Allergy/AdvReac Type Severity Reaction Status Date / Time varenicline tartrate Allergy Verified 02/20/17 11:34 [From Chantix] Home Medications: HOME MEDICATIONS Enalapril Maleate [Vasotec] 20 mg PO DAILY 05/02/12 [Last Taken 08/14/17] Hydrochlorothiazide [Hydrodiuril] 25 mg PO DAILY 05/02/12 [Last Taken 08/14/17] Citalopram Hydrobromide [Celexa] 40 mg PO DAILY 05/03/12 [Last Taken 08/14/17] Metoprolol Tartrate 25 mg PO DAILY 05/03/12 [Last Taken 08/14/17] Potassium Chloride 20 meq PO DAILY 05/03/12 [Last Taken 08/14/17] Aspirin [Ecotrin] 325 mg PO DAILY 10/12/12 [Last Taken 08/14/17] Temazepam [Restoril] 30 mg PO HS 11/25/13 [Last Taken 08/14/17] Rosuvastatin Calcium [Crestor] 10 mg PO HS 01/23/14 [Last Taken 08/14/17] Albuterol Sulfate [Ventolin Hfa] 2 puff IH Q4H PRN #1 inhaler 07/28/16 [Last Taken 08/14/17] Ferrous Sulfate [Iron] 325 mg PO DAILY 08/15/17 [Last Taken Unknown] Folic Acid 1 tab PO DAILY 08/15/17 [Last Taken Unknown] HYDROcodone/ACETAMINOPHEN [Hydrocodon-Acetaminophen 5-325] 1 tab PO QID PRN 05/23 [Last Taken 08/14/17 12:00] QUEtiapine FUMARATE [Seroquel] 50 mg PO HS 08/15/17 [Last Taken 08/14/17] Exam - Exam Vital Signs: Vital Signs - Last Taken Temp 36.5 C 08/15/17 07:07 Pulse 66 08/15/17 07:07 Resp 16 08/15/17 07:07 BP 97/61 08/15/17 07:17 Pulse Ox 96 08/15/17 07:07 Constitutional: Present: Alert, Oriented x3, Cooperative ENT Exam: Present: hearing grossly normal Eye Exam: bilateral eye: normal inspection, PERRL, EOMI Neck: Present: supple Respiratory: Present: decreased breath sounds, wheezing, No rales Cardiovascular/Chest: Present: regular rate, rhythm, no JVD, no murmur Abdomen: Present: tender, firm, hypoactive. Absent: guarding, rebound tenderness Extremity: Present: no pedal edema, no calf tenderness Diagnostic Studies: Laboratory Results WBC 19.4 K/mm3 (4.0-10.5) H 08/15/17 01:00 RBC 4.19 M/mm3 (4.2-5.4) L 08/15/17 01:00 Hgb 13.2 gm/dL (12.5-16.0) 08/15/17 01:00 Hct 40.7 % (37.0-47.0) 08/15/17 01:00 MCV 97.1 fl (78-100) 08/15/17 01:00 MCH 31.5 pg (27-31) H 08/15/17 01:00 MCHC 32.4 g/dl (32-36) 08/15/17 01:00 RDW 13.2 % (11.5-14.0) 08/15/17 01:00 Plt Count 299 K/mm3 (150-450) 08/15/17 01:00 MPV 9.6 fl (6.0-9.5) H 08/15/17 01:00 Immature Gran % (Auto) 0.80 % (0.001-0.429) H 08/15/17 01:00 Immature Gran # (Auto) 0.15 K/mm3 (0.000-0.0310) H 08/15/17 01:00 Neutrophils % 75.0 % (42-75.0) 08/15/17 01:00 Lymphocytes % 15.1 % (20-51) L 08/15/17 01:00 Monocytes % 6.4 % (0.0-9) 08/15/17 01:00 Eosinophils % 2.1 % (0.0-3.0) 08/15/17 01:00 Basophils % 0.6 % (0.0-1.0) 08/15/17 01:00 Nucleated RBC % 0.0 k/mm3 (0-1) 08/15/17 01:00 Neutrophils # 14.5 K/mm3 (1.3-6.0) H 08/15/17 01:00 Lymphocytes # 2.93 k/mm3 (1.5-3.5) 08/15/17 01:00 Monocytes # 1.3 k/mm3 (0.0-1.0) H 08/15/17 01:00 Eosinophils # 0.4 k/mm3 (0.0-0.7) 08/15/17 01:00 Absolute Basophils 0.1 k/mm3 (0.0-0.1) 08/15/17 01:00 Sodium 131 mmol/L (132-142) L 08/15/17 01:00 Plasma Sodium 131 mmol/L (130-142) 08/15/17 01:00 Potassium 3.6 mmol/L (3.4-4.6) 08/15/17 01:00 Chloride 99 mmol/L (97-106) 08/15/17 01:00 Carbon Dioxide 20.4 mmol/L (24-32.6) L 08/15/17 01:00 Anion Gap 15.2 mmol/L (6.8-13.8) H 08/15/17 01:00 BUN 14 mg/dL (3-23) 08/15/17 01:00 Creatinine 0.94 mg/dL (0.4-1.4) 08/15/17 01:00 Est GFR (Non-Af Amer) 62 mL/min (60-130) D 08/15/17 01:00 BUN/Creatinine Ratio 14.9 (9.0-21.6) 08/15/17 01:00 Random Glucose 117 mg/dL (70-110) H 08/15/17 01:00 Lactic Acid, Venous 3.1 mmol/L (0.4-1.9) H* 08/15/17 03:20 Calcium 9.2 mg/dL (7.9-10.9) 08/15/17 01:00 Calcium Adj for Albumin 10.3 mg/dL (8.4-10.2) H 08/15/17 01:00 Total Bilirubin 0.7 mg/dL (0.0-1.1) 08/15/17 01:00 AST 19 U/L (0-48) 08/15/17 01:00 ALT 13 U/L (19-67) L 08/15/17 01:00 Alkaline Phosphatase 93 U/L (50-170) 08/15/17 01:00 Troponin I Less than 0.017 ng/ml (0.00-0.10) 08/15/17 01:00 Total Protein 7.1 gm/dL (6.2-8.2) 08/15/17 01:00 Albumin 2.2 gm/dl (3.4-5.0) L 08/15/17 01:00 Urine Color Yellow 08/15/17 03:00 Urine Appearance Slightly cloudy (CLEAR) 08/15/17 03:00 Urine pH 7.0 pH (5.0-7.0) 08/15/17 03:00 Ur Specific [place] 1.015 SP.GR. (1.005-1.010) 08/15/17 03:00 Urine Protein 15 mg/dL (NEGATIVE) H 08/15/17 03:00 Urine Glucose (UA) Negative mg/dL (NEGATIVE) 08/15/17 03:00 Urine Ketones Negative mg/dL (NEGATIVE) 08/15/17 03:00 Urine Blood 25 /ul (NEGATIVE) H 08/15/17 03:00 Urine Nitrate Negative (NEGATIVE) 08/15/17 03:00 Urine Bilirubin Negative mg/dl (NEGATIVE) 08/15/17 03:00 Prot Sulfosalicylic Acd QNS 08/15/17 03:00 Urine Urobilinogen Normal EU/dl (NORMAL) 08/15/17 03:00 Ur Leukocyte Esterase 25 /ul (NEGATIVE) H 08/15/17 03:00 Urine RBC Trace /hpf (0-5) 08/15/17 03:00 Urine WBC None seen /hpf (0-5) 08/15/17 03:00 Ur Epithelial Cells 0-5 /hpf (0-5) 08/15/17 03:00 Urine Bacteria 1+ (NONE) H 08/15/17 03:00 Urine Culture Comments Culture to follow 08/15/17 03:00 Stool Occult Blood Negative 08/15/17 01:30 Urine Opiates Screen Positive (NEGATIVE) H 08/15/17 03:30 Barbiturate Screen Negative (NEGATIVE) 08/15/17 03:30 Ur Phencyclidine Scrn Negative (NEGATIVE) 08/15/17 03:30 Urine Amphetamine Negative (NEGATIVE) 08/15/17 03:30 U Benzodiazepines Scrn Negative (NEGATIVE) 08/15/17 03:30 Urine Cocaine Screen Negative (NEGATIVE) 08/15/17 03:30 Urine Marijuana (THC) Negative (NEGATIVE) 08/15/17 03:30 Influenza Type A Ag Negative (NEGATIVE) 08/15/17 01:00 Influenza Type B Ag Negative (NEGATIVE) 08/15/17 01:00 Assessment/Plan - Assessment/Plan (1) Food poisoning Assessment: likely due to acute infectious gastreneteritis. will continue with IVF. await stool culture. Problem: Acute Qualifiers: Encounter type: initial encounter (2) Dehydration, severe Assessment: with hypovolemia and resultant hypotension. continue with IVF. Problem: Acute (3) Tobacco abuse Problem: Acute (4) COPD (chronic obstructive pulmonary disease) Problem: Acute (5) Anxiety and depression Problem: Acute (6) Hypertension Assessment: now hypotensive due to hypovolemia Problem: Acute
[2017-08-15] MEDS: NORMAL SALINE 1,000 ML IV PRN ×3 (08:07→23:35)
[2017-08-15] MEDS: ENOXAPARIN SODIUM 40 MG/0.4 ML SYRG SC SCH (10:47)
[2017-08-15] MEDS: traMADol HCL 50 MG TABLET PO PRN (12:30)
[2017-08-15] MEDS: ALBUTEROL SULFATE 2.5 MG/0.5 ML VIAL.NEB IH PRN (20:12)
[2017-08-15] MEDS: BUDESONIDE 0.5 MG/2 ML VIAL.NEB IH PRN (20:25)
[2017-08-15] MEDS: QUEtiapine FUMARATE 25 MG TABLET PO SCH (21:14)
[2017-08-15] MEDS: TEMAZEPAM 15 MG CAPSULE PO SCH (21:15)
[2017-08-15] MEDS: FLUTICASONE/SALMETEROL 14 PUFF DISK.W.DEV IH SCH ×2 (23:35→23:36)
[2017-08-16] MEDS: cefTRIAXone SODIUM 1,000 MG in DEXTROSE 5 % IN WATER 50 ML IV SCH ×2 (02:48)
[2017-08-16] MEDS: traMADol HCL 50 MG TABLET PO PRN ×2 (07:18→16:27)
[2017-08-16] MEDS: NORMAL SALINE 1,000 ML IV PRN ×3 (07:30→21:46)
[2017-08-16] MEDS: BUDESONIDE 0.5 MG/2 ML VIAL.NEB IH PRN ×2 (07:33→18:34)
[2017-08-16] MEDS: ALBUTEROL SULFATE 2.5 MG/0.5 ML VIAL.NEB IH PRN ×3 (07:34→18:35)
[2017-08-16] MEDS: CITALOPRAM HYDROBROMIDE 20 MG TABLET PO SCH (09:28)
[2017-08-16] MEDS: FLUTICASONE/SALMETEROL 14 PUFF DISK.W.DEV IH SCH ×2 (09:29→20:22)
[2017-08-16 09:37] LABS: Hematocrit 33.4 % (37.0-47.0); Hemoglobin 11.2 gm/dL (12.5-16.0); Mean Cell Volume 94.1 fl (78-100); Mean Corpuscular Hemoglobin 31.5 pg (27-31); Mean Corpuscular Hgb Conc 33.5 g/dl (32-36); Mean Platelet Volume 9.3 fl (6.0-9.5); Neutrophil # 4.8 K/mm3 (1.3-6.0); Neutrophil % 62.5 % (42-75.0); Platelet Count 313 K/mm3 (150-450); Red Blood Count 3.55 M/mm3 (4.2-5.4); Red Cell Distribution Width 13.4 % (11.5-14.0); White Blood Count 7.6 K/mm3 (4.0-10.5)
[2017-08-16 09:49] LABS: Anion Gap 10.3 mmol/L (6.8-13.8); BUN/Creatinine Ratio 6.2 (9.0-21.6); Calcium * 8.6 mg/dL (7.9-10.9); Carbon Dioxide 25.6 mmol/L (24-32.6); Estimated Creat Clear 61.9; Potassium 2.9 mmol/L (3.4-4.6)
[2017-08-16] MEDS: ENOXAPARIN SODIUM 40 MG/0.4 ML SYRG SC SCH (10:39)
--- NOTE | 2017-08-16 12:12 | PN ---
Subjective - Date and Time Seen Date: 08/16/17 Time: 12:08 Subjective Narrative: patient eating breakfast. no longer hypotensive. Objective - Review of Systems Generalized/Overall Review: Reports: Weakness. Denies: Chills, Fever Respiratory: Reports: Cough. Denies: Wheezing Abdominal: Denies: Nausea, Vomiting, Abdominal Pain Genitourinary Symptoms: Denies: Urgency, Frequency - Vitals Vitals: Last Vital Signs Temp 37.2 C 08/16/17 06:16 Pulse 73 08/16/17 10:07 Resp 18 08/16/17 07:44 BP 125/72 08/16/17 06:16 Pulse Ox 97 08/16/17 07:34 - Abnormal Lab Findings Abnormal Lab Findings: Abnormal Lab Results 08/16/17 08/16/17 08/16/17 Range/Units 09:35 09:35 10:02 RBC 3.55 L (4.2-5.4) M/mm3 Hgb 11.2 L (12.5-16.0) gm/dL Hct 33.4 L (37.0-47.0) % MCH 31.5 H (27-31) pg Potassium 2.9 L (3.4-4.6) mmol/L BUN/Creatinine Ratio 6.2 L (9.0-21.6) Lactic Acid, Venous 2.0 H (0.4-1.9) mmol/L - Exam Constitutional: Present: Alert, Oriented x3, Cooperative ENT Exam: Present: hearing grossly normal Neck: Present: supple Respiratory: Present: decreased breath sounds, No rales, No wheezing Cardiovascular/Chest: Present: regular rate, rhythm, no JVD, no murmur Abdomen: Present: Normal bowel sounds, soft, nontender, nondistended Extremity: Present: no pedal edema, no calf tenderness Assessment/Plan - Problems/Diagnosis (1) Food poisoning Problem: Acute Qualifiers: Encounter type: initial encounter (2) Dehydration, severe Problem: Acute (3) Tobacco abuse Problem: Acute (4) COPD (chronic obstructive pulmonary disease) Problem: Acute (5) Anxiety and depression Problem: Acute (6) Hypertension Problem: Acute (7) Lactic acid acidosis Problem: Acute Narrative: improved likley due to hypotension/hypovolemia (8) Leukocytosis Problem: Resolved Narrative: likely reactive than infectious. (9) Hypokalemia Problem: Acute
[2017-08-16] MEDS: POTASSIUM CHLORIDE 20 MEQ TABLET.SA PO SCH ×2 (12:24→16:26)
[2017-08-16] MEDS: QUEtiapine FUMARATE 25 MG TABLET PO SCH (20:23)
[2017-08-16] MEDS: TEMAZEPAM 15 MG CAPSULE PO SCH (20:25)
[2017-08-17] MEDS: cefTRIAXone SODIUM 1,000 MG in DEXTROSE 5 % IN WATER 50 ML IV SCH ×2 (02:11)
[2017-08-17] MEDS: NORMAL SALINE 1,000 ML IV PRN (04:58)
[2017-08-17 06:41] LABS: Anion Gap 10.2 mmol/L (6.8-13.8); BUN/Creatinine Ratio 7.5 (9.0-21.6); Bilirubin, Total 0.3 mg/dL (0.0-1.1); Ca. Corrected For Albumin 9.9 mg/dL (8.4-10.2); Calcium * 8.6 mg/dL (7.9-10.9); Carbon Dioxide 24.7 mmol/L (24-32.6); Potassium 3.9 mmol/L (3.4-4.6); Total Protein 5.7 gm/dL (6.2-8.2)
[2017-08-17] MEDS: ALBUTEROL SULFATE 2.5 MG/0.5 ML VIAL.NEB IH PRN (07:24)
[2017-08-17] MEDS: BUDESONIDE 0.5 MG/2 ML VIAL.NEB IH PRN (07:24)
--- NOTE | 2017-08-17 08:28 | DS ---
(1) Food poisoning Problem: Resolved Qualifiers: Encounter type: initial encounter (2) Dehydration, severe Problem: Resolved (3) Tobacco abuse Problem: Chronic (4) COPD (chronic obstructive pulmonary disease) Problem: Chronic (5) Anxiety and depression Problem: Chronic (6) Hypertension Problem: Chronic (7) Lactic acid acidosis Problem: Resolved (8) Leukocytosis Problem: Resolved (9) Hypokalemia Problem: Resolved Description of Stay: Jackie Tolbert, is a 72-year-old white female, patient of Dr. Florez, with previous medical history of COPD, DVT, hypertension, anxiety and depression, who was admitted on 08/15/2017 because of nausea, vomiting and diarrhea. The patient was in her usual self until last night when her granddaughter heated up her frozen pizza. She ate 2 slices around 9 in the evening. She went to her bed around 10 in the evening and she started getting nauseous. Later on, she started having nausea, vomiting and profuse diarrhea. She felt warm and started sweating and so she was brought to the emergency room. In the emergency room she was still bathed in her liquid stool. She was found to be hypotensive and IV fluid boluses were given to bring up her blood pressure. She was then admitted for further treatment. Her granddaughter did not eat the pizza . She denied any fever or chills, denied blood in the stools. She does not know the expiration date of the pizza. Her lactic acid was elevated at 10.3. She had leukocytosis which normalized the following day. Her BP and lactic acid normalised. Her stool culture, urine culture and blood culture showed NG. She has not had N/V/Diarrhea . She is stable to be discharged today. Procedures Performed: none Discharge Location: Home w [facility] Disposition: Home Health Service Condition: Stable Discharge Activity: Activity as tolerated Discharge Diet: Low salt Additional Patient Instructions (free text): -Fax info and call report to [facility] at discharge for courtesy visit. Follow up with her PCP, Dr Florez in 1 week.. on 08-24-17 @ 1:30pm. Complete Home Medications List: Complete Home Medication List: Enalapril Maleate [Vasotec] 20 mg PO DAILY 05/02/12 Hydrochlorothiazide [Hydrodiuril] 25 mg PO DAILY 05/02/12 Citalopram Hydrobromide [Celexa] 40 mg PO DAILY 05/03/12 Metoprolol Tartrate 25 mg PO DAILY 05/03/12 Potassium Chloride 20 meq PO DAILY 05/03/12 Aspirin [Aspirin Enteric Coated] 325 mg PO DAILY 10/12/12 Temazepam [Restoril] 30 mg PO HS 11/25/13 Rosuvastatin Calcium [Crestor] 10 mg PO HS 01/23/14 Albuterol Sulfate [Ventolin Hfa] 2 puff IH Q4H PRN #1 inhaler 07/28/16 Ferrous Sulfate [Iron] 325 mg PO DAILY 08/15/17 Folic Acid 1 mg PO BID 08/15/17 HYDROcodone/ACETAMINOPHEN [Hydrocodone-Acetamin 5-325 mg] 1 tab PO QID PRN 08/15 QUEtiapine FUMARATE [Seroquel] 50 mg PO HS 08/15/17
[2017-08-17] MEDS: FLUTICASONE/SALMETEROL 14 PUFF DISK.W.DEV IH SCH (08:53)
[2017-08-17] MEDS: CITALOPRAM HYDROBROMIDE 20 MG TABLET PO SCH (08:53)
[2017-08-17] MEDS: POTASSIUM CHLORIDE 20 MEQ TABLET.SA PO SCH (08:53)
[2017-08-17] MEDS: ENOXAPARIN SODIUM 40 MG/0.4 ML SYRG SC SCH (10:24)
[2017-08-17 10:50] VITALS: BP 140/79
== END 2017-08-17 13:58 | disposition home health service (06) | DRG 392 ==
LOC: ER 23:42 → MS 08-15 04:12
PROVIDERS: ADMIT Internal Medicine; ATTEND Internal Medicine
DX: A05.9 Bacterial foodborne intoxication, unspecified (principal); E87.2 Acidosis; E86.0 Dehydration; E86.1 Hypovolemia; F41.8 Other specified anxiety disorders; J44.9 Chronic obstructive pulmonary disease, unspecified; I10 Essential (primary) hypertension; F17.210 Nicotine dependence, cigarettes, uncomplicated; Z88.8 Allergy status to other drugs, medicaments and biological substances; Z85.41 Personal history of malignant neoplasm of cervix uteri